=== PATIENT | male | born 1985 | race Caucasian/White ===

== ENCOUNTER 2017-11-26 13:18 | Outpatient (CLI) | payer BC | END 2017-11-26 13:19 | disposition home or self-care (01) | LOC: BICRAD 13:18 | PROVIDERS: ATTEND Nurse Practitioner Family | DX: M79.672 Pain in left foot (principal) ==

== ENCOUNTER 2018-04-04 16:53 | Observation (INO) | payer BC ==
[~2018-04-04 16:53] MED LIST: Iopamidol 370 76% 100 ML VIAL ONE
[2018-04-04] MEDS ORDERED: Morphine 4 MG/ML VIAL ONE ×2 (17:34→18:26)
[2018-04-04] MEDS ORDERED: Ondansetron HCl/PF 4 MG/2 ML Vial ONE ×2 (17:34→18:28)
[2018-04-04 17:59] LABS: Band 15 % (5-11); Hemoglobin 18.3 g/dL (14.0-18.0); Lymphocytes 14 % (21-51); MDiff Complete? YES; Mean Corpuscular Hemoglobin 33.4 pg (27.0-31.0); Mean Corpuscular Volume 95.4 fL (78.0-98.0); Mean Platelet Volume 7.6 fL (7.4-10.4); Monocytes 8 % (0-10); Neutrophil 63 % (42-75); PLT Morphology Comment Appears Adequate; Platelet Count 256 thou/uL (130-400); RBC Distribution Width 11.1 % (11.5-14.5); Red Blood Cell (RBC) Count 5.46 mill/uL (4.70-6.10); White Blood Cell (WBC) Count 12.8 thou/uL (4.8-10.8)
[2018-04-04 18:07] LABS: ALT (SGPT) 29 U/L (8-55); AST (SGOT) 21 U/L (5-34); Albumin 4.6 g/dL (3.5-5.0); Alkaline Phosphatase 76 U/L (40-150); Anion Gap 16 mmol/L (10-20); BUN (Urea Nitrogen) 12 mg/dL (8.9-20.6); Bilirubin, Total 0.8 mg/dL (0.2-1.2); Calc. Creatinine Clearance 0 mL/min (70-130); Calcium 9.5 mg/dL (7.8-10.44); Carbon Dioxide 22 mmol/L (22-29); Chloride 101 mmol/L (98-107); Estimated GFR-MDRD Greater than 90; Globulin 2.8 g/dL (2.4-3.5); Glucose 90 mg/dL (70-105); Lipase 29 U/L (8-78); Protein, Total 7.4 g/dL (6.0-8.3); Sodium 135 mmol/L (136-145)
[2018-04-04] MEDS ORDERED: Piperacillin/Tazobactam 4.5 GM VIAL ONE (18:28)
[2018-04-04 18:54] LABS: Bilirubin Negative (Negative); Blood, Urine Negative (Negative); Clarity Clear (Clear); Glucose, Urine (Dipstick) Negative (Negative); Leukocyte Negative (Negative); Nitrite Negative (Negative); Protein, Urine (Dipstick) Negative (Neg-Trace); Urobilinogen 0.2 mg/dL (0.2-1.0)
[2018-04-04] MEDS ORDERED: Morphine 4 MG/ML Carpuject ONE (19:34)
--- NOTE | 2018-04-04 20:12 | CT ---
CT ABDOMEN WITH CONTRAST CT PELVIS WITH CONTRAST: DATE: 04-04-18 TIME: 7:05 p.m. HISTORY: 32-year-old male with right sided abdominal pain, nausea, and emesis. COMPARISON: None. TECHNIQUE: IV injection of iodinated contrast media: 100 ml Isovue 370 Oral contrast media: 900 ml diluted gastrografin FINDINGS: There are at least three calcified appendicoliths. The appendix is dilated to a caliber up to 19 mm, and has diffuse mural thickening and enhancement. There is prominent periappendiceal fat stranding re presenting edema which extends superiorly, medially, and inferiorly, along the right paracolic gutter . No pneumoperitoneum. Decompressed urinary bladder. Normal abdominal aorta, kidneys, adrenals, pancr eas, liver, and spleen. No colonic diverticulitis. Decompressed urinary bladder. IMPRESSION: Ruptured, acute appendicitis. CUAUHTEMOC Carrillo POS: MONICA
[2018-04-04 21:51] VITALS: BMI 29.8
[2018-04-04] MEDS ORDERED: Morphine 2 MG/ML SYRINGE SLOW IVP PRN (22:03)
[2018-04-04] MEDS ORDERED: Morphine 4 MG/ML VIAL SLOW IVP PRN (22:04)
[2018-04-04] MEDS ORDERED: Ondansetron ODT 4 MG TAB SL PRN (22:04)
[2018-04-04] MEDS ORDERED: Ondansetron HCl/PF 4 MG/2 ML Vial IVP PRN (22:04)
[2018-04-04] MEDS ORDERED: Sodium Chloride 0.9% 1,000 ML IV SCH (22:04)
--- NOTE | 2018-04-04 23:29 | HP ---
DATE OF ADMISSION: 04/04/2018 HISTORY OF PRESENT ILLNESS: Mr. [place] is a 32-year-old man, who [facility] [place]. The patient reported insidious onset right flank/abdominal pain, which is present over the last 4 days. He was initially seen by his primary care physician in outsct ient clinic at that time. Preliminary workup did not lead to a diagnosis of appendicitis. The patie nt was placed on antispasmodics. He felt better 24 hours later up until earlier today, when the yamilex ent started with severe right flank to lower abdominal pain. At this time, it is associated with mul tiple episodes of nausea, but no emesis. The patient denies any other change in his bowel habits. H e denies any fevers or chills. Workup in [place] included a CT scan of the abdomen and pelvis, which was suggestive of acute appendicitis with rupture. The patient was transferred to [place], [place]. At the time of my evaluation, he is awake and alert. He did receive some intravenous analgesics in [facility] prior to this transfer. He now rates his pain at 5/10. PAST MEDICAL HISTORY: Denies any previous medical problems. PAST SURGICAL HISTORY: Pertinent for right knee arthroscopy and repair of meniscal tear. SOCIAL HISTORY: He is and lives at home with his and stepchildren. 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 He admits occasional intake of ethanol in moderate amounts. He denies any cigarette smoking or illic it drug abuse. FAMILY HISTORY: Notable for 1 grandfather with prostate carcinoma. Two grandparents with asbestos-r elated mesothelioma and 1 other grandparent with lung carcinoma. PRE-HOSPITALIZATION MEDICATIONS: None except for the recently prescribed, I suspect, Bentyl. ALLERGIES: The patient denies any known drug allergies. REVIEW OF SYSTEMS: Ten-point review of systems is essentially unremarkable except as stated in the p ast medical history and chief complaint. PHYSICAL EXAMINATION: GENERAL: This reveals a 32-year-old normally developed man, who is otherwise coherent and interactiv e and appears stated age. The patient is alert and oriented x3, appears to be in [id number] d istress secondary to abdominal pain. VITAL SIGNS: Includes blood pressure 128/83, pulse is 98, respiratory rate is 18, temperature is 99. 5 degrees Fahrenheit, oxygen saturation is 98% on room air. HEENT: Normocephalic and atraumatic. HEART: Regular rate and rhythm. No murmurs or gallops auscultated. LUNGS: Clear to auscultation bilaterally. His breathing is regular and unlabored. ABDOMEN: Soft with right lower quadrant tenderness to palpation. Liver and spleen are otherwise non palpable below costal margin. EXTREMITIES: 2+ radial and pedal pulses bilaterally. No ankle edema is present. NEUROLOGIC: No focal deficits present. LABORATORY DATA: Pertinent laboratory findings today includes a CBC with 12,800 white blood cells, h emoglobin and hematocrit 18.3 and 52.1 respectively. Platelet count is 256,000. Differential counts are as follows: 63 segmented neutrophils, 15 bands, 14 lymphocytes, and 8 monocytes. Metabolic pro file: Sodium 135, potassium is 4, chloride is 101, bicarbonate is 22, BUN 12, creatinine 0.91, gluco se 90, total bilirubin is 0.8. AST and ALT are 21 and 29 respectively. C-reactive protein is elevat ed at 1.40. Serum lipase is normal at 29. I have personally reviewed the CT scan of the abdomen and pelvis, which reveals a dilated appendix wi significant periappendiceal fat stranding and 3 calcified appendicoliths. IMPRESSION: Acute appendicitis, likely ruptured. PLAN: Laparoscopic appendectomy. The above findings and plan have been discussed with the patient a nd his in the presence of his nurse. I have advised the patient of the risks and benefits of th e proposed surgery. Risks include, but not limited to bleeding, infection, injury to bowel and surro unding structures. The patient indicates understanding of this information and has given consent for this admission and surgical intervention.
[2018-04-04] MEDS ORDERED: Piperacillin/Tazobactam 3.375 GM in Sodium Chloride 0.9% 100 ML IVPB SCH (23:59)
[2018-04-05] MEDS ORDERED: Bupivacaine/Epinephrine 0.25% 30 ML VIAL ONE (00:25)
[2018-04-05] MEDS ORDERED: Fentanyl 100 MCG/2 ML VIAL ONE ×4 (00:29→02:41)
[2018-04-05] MEDS ORDERED: Dextrose 50% Abboject 50 ML SYRINGE SLOW IVP PRN (02:14)
[2018-04-05] MEDS ORDERED: Dextrose 5% in Water 1,000 ML IV PRN (02:14)
[2018-04-05] MEDS ORDERED: hydrALAZINE 20 MG/ML VIAL SLOW IVP PRN (02:14)
[2018-04-05] MEDS ORDERED: Ondansetron HCl/PF 4 MG/2 ML Vial IVP PRN (02:14)
[2018-04-05] MEDS ORDERED: Promethazine HCl 25 MG/ML VIAL IM PRN (02:14)
[2018-04-05] MEDS ORDERED: Lactated Ringer's 1,000 ML IV SCH (02:15)
[2018-04-05] MEDS ORDERED: traMADol HCl 50 MG TAB PO PRN (02:16)
[2018-04-05] MEDS: Acetaminophen 500 MG TAB PO SCH ×2 (03:09→08:26)
[2018-04-05] MEDS: traMADol HCl 50 MG TAB PO PRN ×3 (04:20→18:21)
--- NOTE | 2018-04-05 04:20 | OP ---
DATE OF OPERATION: 04/05/2018 PREOPERATIVE DIAGNOSIS: Acute appendicitis with perforation. POSTOPERATIVE DIAGNOSES: 1. Acute retrocecal appendicitis with rupture. 2. Periappendiceal abscess. SURGEON: Rodrick Clifton D.O. ANESTHESIA: General endotracheal. ESTIMATED BLOOD LOSS: 25 mL. FLUIDS GIVEN: 900 mL of crystalloids. SPONGE AND INSTRUMENT COUNT: Certified as correct x2. COMPLICATIONS: None apparent at the time of operation. OPERATIONS PERFORMED: Laparoscopic appendectomy with drainage of periappendiceal abscess. INDICATIONS FOR OPERATION: This is a 32-year-old man who presented with 4-day history of right flank pain, which had progressed to right lower abdominal pain. Clinical and radiographic examination was consistent with acute appendicitis with perforation. The patient was brought to the operating room for appendectomy. Findings are consistent with acute retrocecal appendicitis with rupture and periap pendiceal abscess. DESCRIPTION OF OPERATION: Informed consent obtained from the patient who was brought to the operatin g room and placed in supine position. Following general anesthesia, Alfredo catheter was inserted and placed bedside drain. Abdomen is sterilely prepped and draped in usual fashion. Skin below the umbi licus was infiltrated with 0.25% Marcaine with epinephrine and small curvilinear infraumbilical incis ion is made using an 11 scalpel. Umbilical stalk grasped with Tanesha's and elevated. Veress needle was inserted through the incision and placed in peritoneal cavity through which the abdomen was insuf flated with 3 liters of CO2 gas. Intraabdominal pressure noted as 0 mmHg. Following abdominal insuf flation, Veress needle was removed and replaced with a 5 mm trocar was introduced using the Visiport under laparoscopy. Laparoscopy confirmed proper placement of the port, no injuries to underlying str uctures. Additional laparoscopy reveals some fibrinous exudates admixed with omental adhesions in th e right lower quadrant. Under direct laparoscopy, a 5 mm suprapubic and a 12 mm left lower quadrant ports were placed after the overlying skin was infiltrated with 0.25% Marcaine with epinephrine and a ppropriate incisions made. The patient was placed in a Trendelenburg position, rotated to his left. I introduced a inSellyige grasper through the left lower quadrant port site using this to bluntly take down omental adhesions from the right lower quadrant. I traced the distal ileum to approximately 2 feet to the terminal ileum. No Meckel's diverticulum was noted. However, suppurative retrocecal shante endix was encountered, this was ruptured near the base. There is a small collection of a periappendi ceal abscess. Using a Prestige grasper, the appendix was bluntly dissected off the right lateral gut ter. Endo Qing forceps was introduced, grasping the appendix which was elevated. Used a LigaSure device to serially divide the mesoappendix down to the base. The appendix itself was divided betwee n two Endoloops at the appendical cecal junction. The specimen was delivered of the abdominal cavity using an EndoCatch. Operative site was irrigated with saline. A #19 Shivam drain was introduced int o the right lower quadrant and allowed to exit the abdominal cavity through the suprapubic port site. The drain was secured to intra-abdominal wall using 2-0 silk suture. Finding no other pathology, l aparoscopy was terminated. Fascia of the left lower quadrant port was closed using 0 Vicryl suture a nd Endo closure device under laparoscopy. Abdomen was desufflated. The remainder of the ports and i nstruments were removed and accounted for. Skin incisions were closed using 4-0 Monocryl suture in s ubcuticular fashion. Dermabond was applied over the incisional closure. The patient tolerated the o peration without any apparent complication and was returned to recovery room in satisfactory conditio n.
[2018-04-05] MEDS: Piperacillin/Tazobactam 3.375 GM in Sodium Chloride 0.9% 100 ML IVPB SCH ×4 (05:11→23:11)
[2018-04-05] MEDS ORDERED: Ketorolac Tromethamine 30 MG/ML VIAL IVP SCH (06:00)
[2018-04-05] MEDS: Famotidine 20 MG TAB PO SCH ×2 (08:26→20:25)
[2018-04-05] MEDS: Enoxaparin Sodium 40 MG/0.4 ML SYRINGE SC SCH (08:26)
[2018-04-05] MEDS ORDERED: Ibuprofen 600 MG TAB PO PRN (08:56)
[2018-04-05] MEDS ORDERED: HYDROcodone/Acetaminophen 10/325 mg Tablet PO SCH (09:00)
[2018-04-05] MEDS ORDERED: Acetaminophen 325 MG TAB PO PRN ×2 (09:00→11:14)
[2018-04-05] MEDS ORDERED: Famotidine/PF 20 mg/2ml Vial SLOW IVP SCH (09:00)
[2018-04-05] MEDS ORDERED: Acetaminophen 500 MG TAB PO SCH (12:00)
[2018-04-05] MEDS ORDERED: Ondansetron HCl/PF 4 MG/2 ML Vial ONE (12:35)
[2018-04-05] MEDS ORDERED: Succinylcholine Chloride 20 MG/ML 10 ml SYRINGE FS ONE (12:35)
[2018-04-05] MEDS ORDERED: Dexamethasone 20 MG/5 ML VIAL ONE (12:35)
[2018-04-05] MEDS ORDERED: Lidocaine 1% PF 5 ML VIAL ONE (12:35)
[2018-04-05] MEDS ORDERED: Glycopyrrolate 0.2 MG/ML 5 ML SYRINGE ONE (12:35)
[2018-04-05] MEDS ORDERED: PROPOFOL 200 MG/20 ML VIAL ONE (12:35)
[2018-04-05] MEDS ORDERED: Ketorolac Tromethamine 30 MG/ML VIAL ONE (12:35)
[2018-04-05] MEDS: HYDROcodone/Acetaminophen 5/325 mg Tablet PO PRN ×2 (14:55→21:01)
[2018-04-05] MEDS: Ibuprofen 800 MG TAB PO SCH ×2 (14:55→21:01)
[2018-04-05] MEDS: Senokot S 8.6-50 MG TAB PO SCH (20:25)
--- NOTE | 2018-04-05 20:58 | PRG ---
DATE OF SERVICE: 04/05/2018 SUBJECTIVE: Abhijeet [place] is a 32-year-old status post laparoscopic cholecystectomy, drainage of abscess, advanced appendicitis. The patient is having pain, abdominal distention. He has required Dow in addition to his Tylenol, Motrin, and tramadol. He has been ambulating once this morning. OBJECTIVE: VITAL SIGNS: Temperature 98.4 degrees, pulse 80, blood pressure 107/67. YAIMA drainage, not recorded t jennifer of serous bloody drainage. LUNGS: Clear to auscultation. CARDIAC: Regular rate and rhythm without murmur or gallop. ABDOMEN: Slightly distended and tympanitic. EXTREMITIES: Unremarkable. ASSESSMENT AND PLAN: Status post laparoscopic appendectomy for advanced appendicitis. Continue drai n. Intravenous antibiotics. Advance to regular diet, saline lock, manage analgesics. Possibly home in the next 24-48 hours.
[2018-04-06] MEDS: HYDROcodone/Acetaminophen 5/325 mg Tablet PO PRN (04:29)
[2018-04-06] MEDS: Ibuprofen 800 MG TAB PO SCH ×2 (05:17→14:18)
[2018-04-06] MEDS: Piperacillin/Tazobactam 3.375 GM in Sodium Chloride 0.9% 100 ML IVPB SCH (05:18)
[2018-04-06 06:35] LABS: #Eosinphils 0.1 thou/uL (0.0-0.7); #Lymphocytes 1.7 thou/uL (1.20-3.40); #Monocytes 0.7 thou/uL (0.11-0.59); #Neutrophils 6.1 thou/uL (1.40-6.50); %Basophils 0.4 % (0.0-1.0); %Eosinophils 0.8 % (0.0-10.0); %Lymphocytes 19.6 % (21.0-51.0); %Monocytes 8.6 % (0.0-10.0); %Neutrophils 70.7 % (42.0-75.0); Hemoglobin 15.4 g/dL (14.0-18.0); Mean Corpuscular Hemoglobin 33.9 pg (27.0-31.0); Mean Platelet Volume 7.2 fL (7.4-10.4); Platelet Count 226 thou/uL (130-400); RBC Distribution Width 12.2 % (11.5-14.5); Red Blood Cell (RBC) Count 4.56 mill/uL (4.70-6.10); White Blood Cell (WBC) Count 8.6 thou/uL (4.8-10.8)
[2018-04-06] MEDS: Enoxaparin Sodium 40 MG/0.4 ML SYRINGE SC SCH (08:46)
[2018-04-06] MEDS: Famotidine 20 MG TAB PO SCH (08:47)
[2018-04-06] MEDS: Senokot S 8.6-50 MG TAB PO SCH (08:47)
[2018-04-06] MEDS ORDERED: Polyethylene Glycol 3350 17 GM Packet PO SCH (09:00)
[2018-04-06] MEDS ORDERED: Amoxicillin/Potassium Clav 875 MG TAB PO SCH (09:00)
[2018-04-06] MEDS ORDERED: traMADol HCl 50 MG TAB PO SCH ×2 (12:00→16:00)
[2018-04-06] MEDS ORDERED: HYDROcodone/Acetaminophen 5/325 mg Tablet PO SCH (13:00)
[2018-04-06 16:13] VITALS: BP 106/63; TEMP 97.5
--- NOTE | 2018-04-07 00:53 | DIS ---
DATE OF ADMISSION: 04/04/2018 DATE OF DISCHARGE: 04/06/2018 ADMITTING DIAGNOSIS: Acute appendicitis with perforation. DISCHARGE DIAGNOSES: Acute appendicitis with perforation with periappendiceal abscess. OPERATIONS PERFORMED: Laparoscopic appendectomy and drainage of periappendiceal abscess on 8. HISTORY OF PRESENT ILLNESS AND HOSPITAL COURSE: A 32-year-old man presented with abdominal pain of 4 days duration. Clinical and radiographic examination was consistent with acute appendicitis with pe rforation for which patient was brought to the operating room for laparoscopic appendectomy. Surgery , retrocecal appendix with perforation was noted with a significant amount of periappendiceal abscess . Following an uneventful laparoscopic appendectomy and drainage of periappendiceal abscess, the semaj richardson is admitted to the surgical floor where he remained at time of discharge. Postop day #1, he is ambulating with minimum difficulty. He is tolerating diet, having normal bowel and urinary function. His pain is adequately controlled on oral analgesics. He has remained hemodynamically stable and a febrile through this hospitalization. Abdominal examination today reveals intact incisional wounds. Juan-Gaona drain returned scant amount of serous fluid, the drain was removed without incident. The patient clearly has no peritoneal signs on examination. Laboratory findings today include CBC wi normal white blood cell count of 8600 in contrast to 12,800 on admission. Hemoglobin and hematocr it remained stable at 15.4 and 46.7 respectively. Platelet count 226,000. Metabolic profile was not obtained today. DISCHARGE INSTRUCTIONS: The patient will be discharged today with the following instructions: 1. He is given a prescription for Augmentin 875 mg #10 to be taken 1 p.o. b.i.d. until all taken. Jackeline ochoa was also given a prescription for Hardy 5 mg #30 to be taken 1-2 p.o. q.6 hours p.r.n. breakthrough pain. He may take ibuprofen 800 mg p.o. q.8 hours alternating this with acetaminophen 1000 mg p.o. q.6 hours. 2. The patient is encouraged to ambulate daily to avoid complications of venous thromboembolism. He is to avoid weightlifting in excess of 20 pounds until he has been released by me. He may shower ef fective tomorrow. 3. He follows up with me in the Surgery Clinic in 2 weeks. Above instructions have been given to e patient in the presence of his nurse. He indicates understanding of information given. I answered his questions.
== END 2018-04-06 17:10 | disposition home or self-care (01) ==
LOC: SCSER 16:53 → SURG A 19:30
PROVIDERS: ADMIT Surgery; ATTEND Surgery
PROC: 0DTJ4ZZ Resection of Appendix, Percutaneous Endoscopic Approach (ICD-10-PCS; principal; 2018-04-05)
DX: K35.33 Acute appendicitis with perforation, localized peritonitis, and gangrene, with abscess (principal)
CPT/HCPCS: 36415; 74177; 80053; 81003; 83690; 85025; 86140; 88304; 96361; 96365; 96366; 96372; 96374; 96375; 96376; G0378; J1100; J1650; J1885; J2001; J2270; J2405; J2543; J2704; J3010; J7050